=== PATIENT | male | born 1960 | race Caucasian/White ===

== ENCOUNTER 2016-12-11 01:13 | Emergency (ER) | payer OTHER, BC ==
[~2016-12-11] VITALS: Ht 167.6 cm; Wt 78.8 kg
[2016-12-11 04:01] VITALS: BP 136/80
== END 2016-12-11 04:00 | disposition home or self-care (01) ==
LOC: EME 01:13
PROC: 0HQ1XZZ Repair Face Skin, External Approach (ICD-10-PCS; principal; 2016-12-11)
DX: S01.81XA Laceration without foreign body of other part of head, initial encounter (principal); S06.0X0A Concussion without loss of consciousness, initial encounter; R07.81 Pleurodynia; W06.XXXA Fall from bed, initial encounter; Y92.193 Bedroom in other specified residential institution as the place of occurrence of the external cause; F72 Severe intellectual disabilities
CPT/HCPCS: 70450; 70486; 71020; 72125; 99281; 99285; J7030; Q0177

== ENCOUNTER 2017-05-21 08:37 | Emergency (ER) | payer OTHER, BC ==
[~2017-05-21] VITALS: Ht 162.6 cm; Wt 78.5 kg
[2017-05-21 10:00] LABS: ADD MIUA? YES; BILIRUBIN NEGATIVE; BLOOD NEGATIVE; COLOR YELLOW ((YELLOW)); GLUCOSE (STRIP) NEGATIVE; KETONES 5; LEUKOCYTES MODERATE; NITRITE NEGATIVE; PROTEIN (STRIP) NEGATIVE; SPECIFIC GRAVITY 1.015 (1.000-1.030)
[2017-05-21 10:17] LABS: BACTERIA NONE SEEN /HPF; EPITHELIAL CELLS RARE /HPF; MUCUS TRACE /LPF; RED BLOOD CELLS 0-5 /HPF (0-5); UCUL ADDED? YES
[2017-05-21 11:41] VITALS: BP 167/89
== END 2017-05-21 11:43 | disposition home or self-care (01) ==
LOC: EME → EDBD 08:37 → EME 11:43
PROVIDERS: Emergency Medicine
PROC: 0T9B70Z Drainage of Bladder with Drainage Device, Via Natural or Artificial Opening (ICD-10-PCS; principal; 2017-05-21)
DX: N39.0 Urinary tract infection, site not specified (principal); R33.8 Other retention of urine; N40.1 Benign prostatic hyperplasia with lower urinary tract symptoms; F79 Unspecified intellectual disabilities; K21.9 Gastro-esophageal reflux disease without esophagitis
CPT/HCPCS: 81003; 87086; 99281; 99284

== ENCOUNTER 2017-06-01 10:20 | Inpatient (IN) | payer OTHER, BC ==
[2017-06-01] VITALS (12 sets, daily range): BP systolic 72–106; BP diastolic 43–69
[~2017-06-01] VITALS: Ht 157.5 cm; Wt 84.1 kg
[2017-06-01] MEDS ORDERED: BACTRIM,SEPT1 TABLET PO (10:45)
[2017-06-01 10:49] LABS: HEMATOCRIT 41.2 % (38.0-50.0); MCH 27.4 PG (29.0-34.0); MCHC 31.6 G/DL (30.0-36.0); MCV 86.7 FL (86-99); MEAN PLAT.VOLUME 8.9 uM^3 (9.0-12.4); PLATELET COUNT 205 K/uL (156-360); RBC DIS.WIDTH-CV 13.2 % (11.8-14.6); RBC DIS.WIDTH-SD 41.6 % (39-53); RED BLOOD COUNT 4.75 M/uL (4.00-5.50); WHITE BLOOD COUNT 8.5 K/uL (4.1-10.2)
[2017-06-01 10:55] LABS: INTER. NORMALIZED RATIO 1.4; PROTHROMBIN TIME 15.2 SEC (10.2-12.9)
[2017-06-01 10:58] LABS: PTT 40.3 SEC (25-37)
[2017-06-01 11:04] LABS: CHLORIDE 102 mEq/L (99-109); POTASSIUM 4.7 mEq/L (3.7-5.4); SODIUM 138 mEq/L (136-147)
[2017-06-01 11:06] LABS: GLUCOSE 108 mg/dL (70-99)
[2017-06-01 11:07] LABS: ANION GAP 15 MEQ/L (2-14)
[2017-06-01 11:08] LABS: TOTAL BILIRUBIN 1.1 mg/dL (0.0-1.0)
[2017-06-01 11:10] LABS: ALKALINE PHOSPHATASE 191 IU/L (3-129); GFR ESTIMATE (CALCULATED) 45 mL/min/
[2017-06-01 11:11] LABS: UREA NITROGEN (BUN) 20 mg/dL (9-23)
[2017-06-01 11:19] LABS: TROP-I INTERPRETATION NEGATIVE; TROPONIN-I 0.11 ng/mL (0.0-0.30)
[2017-06-01 11:53] LABS: ADD MIUA? YES; BILIRUBIN NEGATIVE; BLOOD LARGE; COLOR YELLOW ((YELLOW)); GLUCOSE (STRIP) NEGATIVE; KETONES NEGATIVE; LEUKOCYTES MODERATE; NITRITE NEGATIVE; PROTEIN (STRIP) 100; SPECIFIC GRAVITY 1.013 (1.000-1.030); UROBILINOGEN 0.2 MG/DL (0.2-1.0)
[2017-06-01 12:03] LABS: EOSINOPHIL (%) 0.4 % (0-5); IMMATURE GRANULOCYTE (%) 0.7 % (0.0-0.7); IMMATURE GRANULOCYTE COUNT 0.1 K/uL; INSTRUMENT ABS NEUTROPHIL CT 7.9 K/uL; LYMPHOCYTE COUNT 0.4 K/uL (1.0-2.8); MONOCYTE (%) 0.7 % (3-12); MONOCYTE COUNT 0.1 K/uL (0-0.8); NEUTROPHIL (%) 92.5 % (45-76); NEUTROPHIL COUNT 7.9 K/uL (1.8-6.4); PLAT.SUFFICIENCY ADEQUATE
[2017-06-01 12:22] LABS: EPITHELIAL CELLS 1+ /HPF; RED BLOOD CELLS TNTC /HPF (0-5); WHITE BLOOD CELLS 40-50 /HPF (0-5)
[2017-06-01 12:23] LABS: BACTERIA 3+ /HPF; CASTS NONE SEEN /LPF; CRYSTALS NONE SEEN; MUCUS NONE SEEN /LPF; UCUL ADDED? YES
[2017-06-01] MEDS ORDERED: [UNRECOGNIZED DRUG - OTHER] TP (12:27)
[2017-06-01] MEDS ORDERED: DAILY VITE WIT1 EACH PO (12:27)
[2017-06-01] MEDS ORDERED: MELOXICAM7.5 MG PO (12:27)
[2017-06-01] MEDS ORDERED: SERTRALINE HCL100 MG PO (12:28)
[2017-06-01] MEDS ORDERED: ROSUVASTATIN CA20 MG PO (12:28)
[2017-06-01] MEDS ORDERED: CHLORHEXIDINE473 ML MM (12:29)
[2017-06-01] MEDS ORDERED: CICLOPIROX45 GM TP (12:29)
[2017-06-01] MEDS ORDERED: OMEPRAZOLE20 M2 PO (12:30)
[2017-06-01] MEDS ORDERED: RISPERIDONE1 MG PO (12:31)
[2017-06-01] MEDS ORDERED: RANITIDINE HCL150 MG PO (12:31)
[2017-06-01] MEDS ORDERED: TYLENOL REGULA325 MG PO (12:32)
[2017-06-01] MEDS ORDERED: VITAMIN E400 UNIT PO (12:32)
[2017-06-01] MEDS ORDERED: HYDROXYZINE HCL25 MG PO (12:32)
[2017-06-01] MEDS ORDERED: COUGH DM E30 MG/5 ML PO (12:33)
[2017-06-01] MEDS ORDERED: HYDROCORTISON28.4 GM TP (12:35)
[2017-06-01] MEDS ORDERED: RISAMINE OINTM113 GM TP (12:37)
[2017-06-01 19:19] LABS: METH RESISTANT S AUREUS PCR NEGATIVE (NEGATIVE)
[2017-06-01 19:52] LABS: PROBE CHECK PASS; SPECIMEN PROCESSING CONTROL PASS
[2017-06-02] VITALS (25 sets, daily range): BP systolic 78–154; BP diastolic 48–87
[2017-06-02 04:00] LABS: HEMATOCRIT 37.2 % (38.0-50.0); MCH 27.9 PG (29.0-34.0); MCHC 30.1 G/DL (30.0-36.0); RBC DIS.WIDTH-CV 13.8 % (11.8-14.6); RBC DIS.WIDTH-SD 47.2 % (39-53); RED BLOOD COUNT 4.01 M/uL (4.00-5.50)
[2017-06-02 04:01] LABS: MCV 92.8 FL (86-99); WHITE BLOOD COUNT 37.2 K/uL (4.1-10.2)
[2017-06-02 04:31] LABS: POTASSIUM 5.5 mEq/L (3.7-5.4); SODIUM 142 mEq/L (136-147)
[2017-06-02 04:33] LABS: GLUCOSE 118 mg/dL (70-99)
[2017-06-02 04:35] LABS: ANION GAP 14 MEQ/L (2-14)
[2017-06-02 04:37] LABS: GFR ESTIMATE (CALCULATED) 45 mL/min/
[2017-06-02 04:38] LABS: UREA NITROGEN (BUN) 27 mg/dL (9-23)
[2017-06-02 04:41] LABS: CHLORIDE 116 mEq/L (99-109)
[2017-06-02 04:52] LABS: MEAN PLAT.VOLUME 9.7 uM^3 (9.0-12.4); PLAT.SUFFICIENCY DECREASED
[2017-06-02 05:33] LABS: PLATELET COUNT 135 K/uL (156-360)
[2017-06-03] VITALS: BP 118/53
[2017-06-03 04:00] VITALS: BP 107/65
[2017-06-03 08:00] VITALS: BP 148/78
[2017-06-03 10:32] LABS: HEMATOCRIT 28.2 % (38.0-50.0); MCH 27.7 PG (29.0-34.0); MCHC 31.6 G/DL (30.0-36.0); MEAN PLAT.VOLUME 9.9 uM^3 (9.0-12.4); PLATELET COUNT 106 K/uL (156-360); RBC DIS.WIDTH-CV 13.9 % (11.8-14.6); RBC DIS.WIDTH-SD 44.8 % (39-53); RED BLOOD COUNT 3.21 M/uL (4.00-5.50); WHITE BLOOD COUNT 15.9 K/uL (4.1-10.2)
[2017-06-03 10:35] LABS: MCV 87.9 FL (86-99)
[2017-06-03 10:57] LABS: ALKALINE PHOSPHATASE 74 IU/L (3-129); ANION GAP 7 MEQ/L (2-14); CHLORIDE 110 MEQ/L (99-109); GLUCOSE 95 mg/dL (70-99); SAMPLE HEMOLYSIS CHECK 0; SAMPLE ICTERIC CHECK 0; SAMPLE LIPEMIA CHECK 0; SODIUM 136 MEQ/L (136-147); TOTAL BILIRUBIN 0.6 MG/DL (0.0-1.0); UREA NITROGEN (BUN) 28 mg/dL (9-23)
[2017-06-03 10:59] LABS: GFR ESTIMATE (CALCULATED) > 59 mL/min/; POTASSIUM 4.3 MEQ/L (3.7-5.4)
[2017-06-03 12:00] VITALS: BP 162/79
[2017-06-03 16:00] VITALS: BP 124/79
[2017-06-03 20:00] VITALS: BP 131/78
[2017-06-04] VITALS: BP 155/71
[2017-06-04 04:00] VITALS: BP 225/99
[2017-06-04 06:48] LABS: HEMATOCRIT 29.3 % (38.0-50.0); MCH 28.6 PG (29.0-34.0); MCHC 32.8 G/DL (30.0-36.0); MCV 87.2 FL (86-99); MEAN PLAT.VOLUME 10.6 uM^3 (9.0-12.4); PLATELET COUNT 124 K/uL (156-360); RBC DIS.WIDTH-CV 14.1 % (11.8-14.6); RBC DIS.WIDTH-SD 44.9 % (39-53); RED BLOOD COUNT 3.36 M/uL (4.00-5.50); WHITE BLOOD COUNT 15.5 K/uL (4.1-10.2)
[2017-06-04 07:07] LABS: ANION GAP 8 MEQ/L (2-14); CHLORIDE 111 MEQ/L (99-109); GFR ESTIMATE (CALCULATED) > 59 mL/min/; GLUCOSE 78 mg/dL (70-99); POTASSIUM 4.3 MEQ/L (3.7-5.4); SAMPLE HEMOLYSIS CHECK 0; SAMPLE ICTERIC CHECK 0; SAMPLE LIPEMIA CHECK 0; SODIUM 140 MEQ/L (136-147); TOTAL BILIRUBIN 0.6 MG/DL (0.0-1.0); UREA NITROGEN (BUN) 20 mg/dL (9-23)
[2017-06-04 07:10] LABS: ALKALINE PHOSPHATASE 134 IU/L (3-129)
[2017-06-04 08:00] VITALS: BP 141/95
[2017-06-04 11:36] VITALS: BP 138/78
[2017-06-04 16:30] VITALS: BP 131/82
[2017-06-04 23:01] VITALS: BP 113/75
[2017-06-05 07:51] LABS: HEMATOCRIT 30.6 % (38.0-50.0); MCH 27.7 PG (29.0-34.0); MCHC 32.4 G/DL (30.0-36.0); MCV 85.5 FL (86-99); MEAN PLAT.VOLUME 10.1 uM^3 (9.0-12.4); PLATELET COUNT 123 K/uL (156-360); RBC DIS.WIDTH-CV 13.5 % (11.8-14.6); RBC DIS.WIDTH-SD 42.3 % (39-53); RED BLOOD COUNT 3.58 M/uL (4.00-5.50); WHITE BLOOD COUNT 9.3 K/uL (4.1-10.2)
[2017-06-05 08:11] VITALS: BP 139/80
[2017-06-05 08:18] LABS: ALKALINE PHOSPHATASE 128 IU/L (3-129); ANION GAP 7 MEQ/L (2-14); CHLORIDE 108 MEQ/L (99-109); GFR ESTIMATE (CALCULATED) > 59 mL/min/; GLUCOSE 74 mg/dL (70-99); POTASSIUM 3.7 MEQ/L (3.7-5.4); SAMPLE HEMOLYSIS CHECK 0; SAMPLE ICTERIC CHECK 0; SAMPLE LIPEMIA CHECK 0; SODIUM 141 MEQ/L (136-147); TOTAL BILIRUBIN 0.5 MG/DL (0.0-1.0); UREA NITROGEN (BUN) 14 mg/dL (9-23)
[2017-06-05 15:35] VITALS: BP 123/69
[2017-06-05 23:22] VITALS: BP 126/73
[2017-06-06 06:40] VITALS: BP 142/78
[2017-06-06 06:50] LABS: HEMATOCRIT 32.3 % (38.0-50.0); MCH 28.2 PG (29.0-34.0); MCHC 32.8 G/DL (30.0-36.0); MCV 85.9 FL (86-99); MEAN PLAT.VOLUME 10.2 uM^3 (9.0-12.4); PLATELET COUNT 127 K/uL (156-360); RBC DIS.WIDTH-CV 13.5 % (11.8-14.6); RBC DIS.WIDTH-SD 42.5 % (39-53); RED BLOOD COUNT 3.76 M/uL (4.00-5.50); WHITE BLOOD COUNT 5.5 K/uL (4.1-10.2)
[2017-06-06 07:49] LABS: ALKALINE PHOSPHATASE 130 IU/L (3-129); ANION GAP 9 MEQ/L (2-14); CHLORIDE 109 MEQ/L (99-109); GFR ESTIMATE (CALCULATED) > 59 mL/min/; GLUCOSE 71 mg/dL (70-99); POTASSIUM 3.6 MEQ/L (3.7-5.4); SAMPLE HEMOLYSIS CHECK 0; SAMPLE ICTERIC CHECK 0; SAMPLE LIPEMIA CHECK 0; SODIUM 144 MEQ/L (136-147); TOTAL BILIRUBIN 0.4 MG/DL (0.0-1.0); UREA NITROGEN (BUN) 12 mg/dL (9-23)
[2017-06-06 15:05] VITALS: BP 141/67
[2017-06-06 23:39] VITALS: BP 165/89
[2017-06-07 06:10] LABS: MCH 27.1 PG (29.0-34.0); MCHC 31.7 G/DL (30.0-36.0); MCV 85.6 FL (86-99); MEAN PLAT.VOLUME 9.8 uM^3 (9.0-12.4); PLATELET COUNT 124 K/uL (156-360); RBC DIS.WIDTH-CV 13.1 % (11.8-14.6); RBC DIS.WIDTH-SD 40.6 % (39-53); RED BLOOD COUNT 4.09 M/uL (4.00-5.50); WHITE BLOOD COUNT 5.7 K/uL (4.1-10.2)
[2017-06-07 06:45] VITALS: BP 132/68
[2017-06-07 06:47] LABS: ALKALINE PHOSPHATASE 115 IU/L (3-129); ANION GAP 7 MEQ/L (2-14); CHLORIDE 104 MEQ/L (99-109); GFR ESTIMATE (CALCULATED) > 59 mL/min/; GLUCOSE 80 mg/dL (70-99); POTASSIUM 3.6 MEQ/L (3.7-5.4); SAMPLE HEMOLYSIS CHECK 0; SAMPLE ICTERIC CHECK 0; SAMPLE LIPEMIA CHECK 0; SODIUM 142 MEQ/L (136-147); TOTAL BILIRUBIN 0.4 MG/DL (0.0-1.0); UREA NITROGEN (BUN) 7 mg/dL (9-23)
[2017-06-07] MEDS ORDERED: CEFDINIR300 MG PO (08:24)
== END 2017-06-07 17:06 | disposition home or self-care (01) | DRG 871 ==
LOC: EME → EDBD 10:20 → EME 10:20 → 5EAST 13:46 → 4WEST 13:46 → EDOF 13:46 → ENRESERV 13:47 → 4WEST 16:33 → ENRESERV 06-04 09:08 → 5EAST 06-04 10:46 → ENPENDDIS 06-07 → 5EAST 06-07 17:06
PROVIDERS: Emergency Medicine; Internal Medicine; Internal Medicine Critical Care Medicine
PROC: 06HM33Z Insertion of Infusion Device into Right Femoral Vein, Percutaneous Approach (ICD-10-PCS; principal; 2017-06-01)
DX: A41.51 Sepsis due to Escherichia coli [E. coli] (principal); R65.21 Severe sepsis with septic shock; N39.0 Urinary tract infection, site not specified; N17.9 Acute kidney failure, unspecified; R31.9 Hematuria, unspecified; E87.2 Acidosis; D61.9 Aplastic anemia, unspecified; D69.59 Other secondary thrombocytopenia; G40.909 Epilepsy, unspecified, not intractable, without status epilepticus; N18.9 Chronic kidney disease, unspecified; N40.1 Benign prostatic hyperplasia with lower urinary tract symptoms; R39.14 Feeling of incomplete bladder emptying; R33.8 Other retention of urine; F42.9 Obsessive-compulsive disorder, unspecified; F41.9 Anxiety disorder, unspecified; K21.9 Gastro-esophageal reflux disease without esophagitis; I34.1 Nonrheumatic mitral (valve) prolapse; F79 Unspecified intellectual disabilities; G80.9 Cerebral palsy, unspecified; K44.9 Diaphragmatic hernia without obstruction or gangrene; Z66 Do not resuscitate; Z96.642 Presence of left artificial hip joint
CPT/HCPCS: 71010; 76770; 80048; 80053; 81003; 83605; 84484; 85025; 85027; 85610; 85730; 87040; 87077; 87086; 87186; 87641; 87801; 93005; 93306; 94640; 94640 76; 94760; 94799; 97530 GP; 99202; 99281; 99285; C1751; J0171; J0456; J0696; J1630; J1644; J2250; J2370; J2543; J7030; J7050; J7120; S0028

== ENCOUNTER 2017-06-24 07:47 | Emergency (ER) | payer OTHER, BC ==
[~2017-06-24] VITALS: Ht 154.9 cm; Wt 74.6 kg
[~2017-06-24 07:47] MED LIST: BACTRIM,SEPT1 TABLET PO; CEFDINIR300 MG PO; CHLORHEXIDINE473 ML MM; CICLOPIROX45 GM TP; COUGH DM E30 MG/5 ML PO; DAILY VITE WIT1 EACH PO; HYDROCORTISON28.4 GM TP; HYDROXYZINE HCL25 MG PO; MELOXICAM7.5 MG PO; OMEPRAZOLE20 M2 PO; RANITIDINE HCL150 MG PO; RISAMINE OINTM113 GM TP; RISPERIDONE1 MG PO; ROSUVASTATIN CA20 MG PO; SERTRALINE HCL100 MG PO; TYLENOL REGULA325 MG PO; VITAMIN E400 UNIT PO; [UNRECOGNIZED DRUG - OTHER] TP
[2017-06-24 08:52] LABS: ADD MIUA? YES; BILIRUBIN NEGATIVE; BLOOD MODERATE; COLOR YELLOW ((YELLOW)); GLUCOSE (STRIP) NEGATIVE; KETONES 5; LEUKOCYTES LARGE; NITRITE NEGATIVE; PROTEIN (STRIP) 30; SPECIFIC GRAVITY 1.024 (1.000-1.030); UROBILINOGEN 0.2 MG/DL (0.2-1.0)
[2017-06-24 09:07] LABS: CHLORIDE 103 mEq/L (99-109); HEMATOCRIT 40.9 % (38.0-50.0); MCHC 31.8 G/DL (30.0-36.0); MCV 84.9 FL (86-99); MEAN PLAT.VOLUME 10.2 uM^3 (9.0-12.4); PLATELET COUNT 165 K/uL (156-360); RBC DIS.WIDTH-CV 13.5 % (11.8-14.6); RBC DIS.WIDTH-SD 41.4 % (39-53); RED BLOOD COUNT 4.82 M/uL (4.00-5.50); SODIUM 139 mEq/L (136-147); WHITE BLOOD COUNT 8.5 K/uL (4.1-10.2)
[2017-06-24 09:09] LABS: GLUCOSE 102 mg/dL (70-99)
[2017-06-24 09:10] LABS: ANION GAP 8 MEQ/L (2-14)
[2017-06-24 09:13] LABS: GFR ESTIMATE (CALCULATED) > 59 mL/min/; UREA NITROGEN (BUN) 19 mg/dL (9-23)
[2017-06-24 09:18] LABS: TROP-I INTERPRETATION NEGATIVE; TROPONIN-I < 0.01 ng/mL (0.0-0.30)
[2017-06-24 09:19] LABS: BACTERIA RARE /HPF; BUDDING YEAST 1+; EPITHELIAL CELLS RARE /HPF; HYALINE CASTS 0-5 /LPF; MUCUS 2+ /LPF; UCUL ADDED? YES; WHITE BLOOD CELLS 15-20 /HPF (0-5)
[2017-06-24] MEDS ORDERED: KEFLEX500 MG PO ×2 (10:34→11:44)
[2017-06-24 11:56] VITALS: BP 140/92
== END 2017-06-24 11:56 | disposition home or self-care (01) ==
LOC: EME → EDBD 07:47 → EME 07:47
PROVIDERS: Emergency Medicine
PROC: 0HQ1XZZ Repair Face Skin, External Approach (ICD-10-PCS; principal; 2017-06-24)
DX: N39.0 Urinary tract infection, site not specified (principal); S01.81XA Laceration without foreign body of other part of head, initial encounter; W19.XXXA Unspecified fall, initial encounter; F79 Unspecified intellectual disabilities; K21.9 Gastro-esophageal reflux disease without esophagitis; R56.9 Unspecified convulsions
CPT/HCPCS: 80048; 81003; 84484; 85027; 87086; 93005; J0696; J1630; J2060

== ENCOUNTER → 2017-11-07 | Outpatient (CLI) | payer OTHER, BC ==
[~2017-11-07] MED LIST changes: +ATARAX,VISTARIL25 MG PO; +BENZACLIN GEL25 GM TP; +CEFTIN500 MG PO; +COLACE100 MG PO; +GOLD BOND MEDI TP; +HALCION0.25 MG PO; +HEMORRHOIDAL OI57 G2 PR; +KEFLEX500 MG PO; +MACROBID100 MG PO; +MG217 PSORIASI107 GM TD; +NYSTATIN-TRIAMC15 GM TP; +PERIDEX473 ML MM; +RISPERDAL2 MG PO; +TRIPLE ANTIB28.35 GM TP
[2017-11-07 09:25] LABS: HEMATOCRIT 43.5 % (38.0-50.0); HEMOGLOBIN 14.3 G/DL (12.5-16.6); MCH 27.8 PG (29.0-34.0); MCHC 32.9 G/DL (30.0-36.0); MCV 84.6 FL (86-99); PLATELET COUNT 109 K/uL (156-360); RBC DIS.WIDTH-CV 13.4 % (11.8-14.6); RBC DIS.WIDTH-SD 41.6 % (39-53); RED BLOOD COUNT 5.14 M/uL (4.00-5.50); WHITE BLOOD COUNT 5.3 K/uL (4.1-10.2)
[2017-11-07 09:43] LABS: PTT 31.7 SEC (25-37)
== END | disposition home or self-care (01) ==
LOC: OPR 08:33 → EDSTATUS 09:00
PROVIDERS: Neurological Surgery
DX: M46.46 Discitis, unspecified, lumbar region (principal); I10 Essential (primary) hypertension; E78.5 Hyperlipidemia, unspecified
CPT/HCPCS: 77012; 85027; 85610; 85730; 87070; 87075; 87205; J0330; J2250

== ENCOUNTER 2018-04-11 06:52 | Day surgery (SDC) | payer OTHER ==
[~2018-04-11] VITALS: Ht 165.1 cm; Wt 67.5 kg
[~2018-04-11 06:52] MED LIST changes: +MILK OF MAGN PO; +ZADITOR BOTH EYES; +ZYPREXA10 MG PO
[2018-04-11 07:30] VITALS: BP 166/82
[2018-04-11 12:19] VITALS: BP 135/74
[2018-04-11 13:15] VITALS: BP 138/89
== END 2018-04-11 13:45 | disposition home or self-care (01) ==
LOC: SDC 06:52
PROC: 01NB0ZZ Release Lumbar Nerve, Open Approach (ICD-10-PCS; principal; 2018-04-11)
DX: M48.062 Spinal stenosis, lumbar region with neurogenic claudication (principal); M51.36 Other intervertebral disc degeneration, lumbar region; F79 Unspecified intellectual disabilities; R26.81 Unsteadiness on feet; K21.9 Gastro-esophageal reflux disease without esophagitis; E78.5 Hyperlipidemia, unspecified
CPT/HCPCS: 72020; 76000; 87070; 87075; 87205; 87641; J0690; J1100; J2405; J2710; J2930; J3010; J3370; J7643; S0020

== ENCOUNTER 2018-04-15 06:40 | Emergency (ER) | payer OTHER ==
[~2018-04-15] VITALS: Ht 162.6 cm; Wt 67.7 kg
[2018-04-15 08:13] LABS: BASOPHIL (%) 0.2 % (0-1); EOSINOPHIL (%) 0.5 % (0-5); HEMATOCRIT 35.1 % (38.0-50.0); IMMATURE GRANULOCYTE (%) 0.3 % (0.0-0.7); LYMPHOCYTE (%) 6.9 % (15-42); LYMPHOCYTE COUNT 0.6 K/uL (1.0-2.8); MCH 28.8 PG (29.0-34.0); MCHC 33.9 G/DL (30.0-36.0); MONOCYTE (%) 7.7 % (3-12); MONOCYTE COUNT 0.7 K/uL (0-0.8); NEUTROPHIL (%) 84.4 % (45-76); NEUTROPHIL COUNT 7.4 K/uL (1.8-6.4); PLATELET COUNT 173 K/uL (156-360); RBC DIS.WIDTH-CV 12.4 % (11.8-14.6); RBC DIS.WIDTH-SD 38.2 % (39-53); RED BLOOD COUNT 4.13 M/uL (4.00-5.50); WHITE BLOOD COUNT 8.8 K/uL (4.1-10.2)
[2018-04-15 08:16] LABS: HEMOGLOBIN 11.9 G/DL (12.5-16.6)
[2018-04-15 08:40] LABS: CHLORIDE 103 MEQ/L (99-109); CREATININE 0.5 MG/DL (0.6-1.3); GFR ESTIMATE (CALCULATED) > 59 mL/min/ (58.99-99999); GLUCOSE 124 mg/dL (70-99); POTASSIUM 3.9 MEQ/L (3.7-5.4); SODIUM 140 MEQ/L (136-147); TROP-I INTERPRETATION NEGATIVE; TROPONIN-I < 0.01 ng/mL (0.0-0.30); UREA NITROGEN (BUN) 10 mg/dL (9-23)
[2018-04-15 11:15] VITALS: BP 116/79
== END 2018-04-15 11:15 | disposition home or self-care (01) ==
LOC: EME → EDBD 06:40 → EME 06:40
PROVIDERS: Emergency Medicine
DX: M54.9 Dorsalgia, unspecified (principal); Z98.890 Other specified postprocedural states; F79 Unspecified intellectual disabilities
CPT/HCPCS: 71046; 80048; 84484; 85025; 85379; 93005; 99281; 99284; J1885

== ENCOUNTER 2018-05-21 09:14 | Emergency (ER) | payer OTHER, BC ==
[~2018-05-21] VITALS: Ht 162.6 cm; Wt 62.5 kg
[2018-05-21 10:05] LABS: BASOPHIL (%) 0.5 % (0-1); EOSINOPHIL (%) 1.6 % (0-5); EOSINOPHIL COUNT 0.1 K/uL (0-0.3); HEMOGLOBIN 13.1 G/DL (12.5-16.6); IMMATURE GRANULOCYTE (%) 0.3 % (0.0-0.7); LYMPHOCYTE COUNT 0.9 K/uL (1.0-2.8); MCH 28.1 PG (29.0-34.0); MCHC 32.8 G/DL (30.0-36.0); MCV 85.8 FL (86-99); MONOCYTE (%) 7.4 % (3-12); MONOCYTE COUNT 0.5 K/uL (0-0.8); NEUTROPHIL (%) 75.2 % (45-76); NEUTROPHIL COUNT 4.7 K/uL (1.8-6.4); PLATELET COUNT 178 K/uL (156-360); RBC DIS.WIDTH-CV 12.7 % (11.8-14.6); RBC DIS.WIDTH-SD 39.5 % (39-53); RED BLOOD COUNT 4.66 M/uL (4.00-5.50); WHITE BLOOD COUNT 6.2 K/uL (4.1-10.2)
[2018-05-21 10:16] LABS: CHLORIDE 104 mEq/L (99-109); POTASSIUM 4.5 mEq/L (3.7-5.4); SODIUM 139 mEq/L (136-147)
[2018-05-21 10:18] LABS: GLUCOSE 104 mg/dL (70-99)
[2018-05-21 10:22] LABS: CREATININE 0.8 mg/dL (0.6-1.3); GFR ESTIMATE (CALCULATED) > 59 mL/min/ (58.99-99999)
[2018-05-21 10:23] LABS: UREA NITROGEN (BUN) 18 mg/dL (9-23)
[2018-05-21 10:26] LABS: TROP-I INTERPRETATION NEGATIVE; TROPONIN-I < 0.01 ng/mL (0.0-0.30)
[2018-05-21 12:27] LABS: TROP-I INTERPRETATION NEGATIVE; TROPONIN-I < 0.01 ng/mL (0.0-0.30)
[2018-05-21 13:02] VITALS: BP 122/89
== END 2018-05-21 13:04 | disposition home or self-care (01) ==
LOC: EME 09:14
PROVIDERS: Emergency Medicine
DX: R07.89 Other chest pain (principal); F79 Unspecified intellectual disabilities; N40.0 Benign prostatic hyperplasia without lower urinary tract symptoms; F42.9 Obsessive-compulsive disorder, unspecified; Z86.69 Personal history of other diseases of the nervous system and sense organs
CPT/HCPCS: 71045; 80048; 84484; 85025; 90832; 93005; 99281; 99284